=== PATIENT | female | born 1940 | race Caucasian/White ===

== ENCOUNTER 2017-01-30 14:41 | Emergency (ER) | payer OTHER ==
[~2017-01-30] VITALS: Ht 154.9 cm; Wt 59.8 kg
[~2017-01-30 14:41] MED LIST: COZA25TA PO; HYDR-3580 PO; LOVA10TA PO; ZOFR4TAB3 SL
[2017-01-30] MEDS ORDERED: SODIUM CHLOR 0.9% 1000 ML INJ 1,000 ML IV SCH (15:04)
[2017-01-30] MEDS ORDERED: ATOR40TA16 PO (15:11)
[2017-01-30] MEDS ORDERED: GABA300C5 PO (15:11)
[2017-01-30] MEDS ORDERED: LOSA50TA PO (15:11)
[2017-01-30] MEDS ORDERED: METF1000 PO (15:11)
[2017-01-30 15:12] VITALS: BP 211/98; PULSE 86; RESP 18; TEMP 97.7; O2SAT 98
--- NOTE | 2017-01-30 15:12 | PD ---
HPI Chief Complaint: GI Complaint Time Seen by Provider: 14:49 Travel History International Travel<30 days: No Contact w/Intl Traveler<30days: No Traveled to known affect area: No History of Present Illness HPI Patient is a 76-year-old female with history of hypertension, hyperlipidemia, diabetes, diverticulosis, who presents to emergency room with complaints of pain with nausea and vomiting and runny stool which has been ongoing for the past 4 days. Patient reports that for the past 4 days, she thought that she had a stomach bug. Reports that she has had increased mild to moderate discomfort to her epigastrium and upper abdomen and sometimes lower abdomen, reports increased nausea with no vomiting with her symptoms. She reports that for the past 2 days, she has had watery diarrhea about 3x in the morning. Patient did take a dose of Metamucil this morning which in attempt to thicken her stools. Patient reports no sick contacts, denies any recent travels. Patient does admit to taking antibiotics recently for urinary tract infection, she completed the antibiotics that one week ago. Patient with no chest pain or shortness of breath. Denies headache/dizzyness. Patient denies fever, reports chills. Patient has been eating and drinking plenty of fluids for hydration, reports "i just don't feel good." PFSH Past Medical History High Cholesterol: Yes Hypertension: Yes Past Surgical History Hysterectomy: Yes Social History Alcohol Use: Yes (1 OR 2 PER DAY) Tobacco Use: No Substance Use: No Allergies-Medications (Allergen,Severity, Reaction): Coded Allergies: penicillin G (Unverified Allergy, Severe, UNKNOWN, 01/30/17) Sulfa (Sulfonamide Antibiotics) (Unverified Adverse Reaction, Severe, NAUSEA, 01/30/17) Reported Meds & Prescriptions Reported Meds & Active Scripts Active Reported Gabapentin 300 Mg Cap Unknown Dose PO HS Metformin (Metformin HCl) 1,000 Mg Tab Unknown Dose PO DAILY With a meal Atorvastatin (Atorvastatin Calcium) 40 Mg Tab Unknown Dose PO HS Losartan (Losartan Potassium) 50 Mg Tab Unknown Dose PO DAILY Review of Systems General / Constitutional: Positive: Chills, No: Fever Eyes: No: Visual changes HENT: No: Headaches Cardiovascular: No: Chest Pain or Discomfort, Palpitations, Irregular Rhythm, Tachycardia Respiratory: No: Cough, Shortness of Breath Gastrointestinal: Positive: Nausea, Diarrhea, Abdominal Pain Genitourinary: No: Dysuria Musculoskeletal: No: Pain Skin: No Rash Neurologic: No: Weakness Psychiatric: No: Depression Endocrine: No: Polydipsia Hematologic/Lymphatic: No: Easy Bruising Physical Exam Narrative GENERAL: mild distress SKIN: Focused skin assessment warm/dry. HEAD: Atraumatic. Normocephalic. EYES: Pupils equal and round. No scleral icterus. No injection or drainage. ENT: No nasal bleeding or discharge. Mucous membranes pink and moist. NECK: Trachea midline. No JVD. CARDIOVASCULAR: Regular rate and rhythm. No murmur appreciated. RESPIRATORY: No accessory muscle use. Clear to auscultation. Breath sounds equal bilaterally. GASTROINTESTINAL: Abdomen soft, non-tender, nondistended. Hepatic and splenic margins not palpable. MUSCULOSKELETAL: No obvious deformities. No clubbing. No cyanosis. No edema. NEUROLOGICAL: Awake and alert. No obvious cranial nerve deficits. Motor grossly within normal limits. Normal speech. PSYCHIATRIC: Appropriate mood and affect; insight and judgment normal. Data Data Last Documented VS Vital Signs Date Time Temp Pulse Resp B/P (MAP) Pulse Ox O2 Delivery O2 Flow Rate FiO2 01/30/17 16:29 80 18 174/70 (104) 98 Room Air 01/30/17 15:12 97.7 Orders Orders Electrocardiogram (01/30/17 ) Complete Blood Count With Diff (01/30/17 15:04) Comprehensive Metabolic Panel (01/30/17 15:04) Lipase (01/30/17 15:04) Prothrombin Time / Inr (Pt) (01/30/17 15:04) Act Partial Throm Time (Ptt) (01/30/17 15:04) Urinalysis - C+S If Indicated (01/30/17 15:04) Ct Abd/Pel W Iv Contrast(Rout) (01/30/17 15:04) Iv Access Insert/Monitor (01/30/17 15:04) Ecg Monitoring (01/30/17 15:04) Oximetry (01/30/17 15:04) Ondansetron Inj (Zofran Inj) (01/30/17 15:15) Sodium Chlor 0.9% 1000 Ml Inj (Ns 1000 M (01/30/17 15:04) Sodium Chloride 0.9% Flush (Ns Flush) (01/30/17 15:15) Electrocardiogram (01/30/17 15:04) Chest, Single Ap (01/30/17 15:04) Ckmb (Isoenzyme) Profile (01/30/17 15:04) Troponin I (01/30/17 15:04) Famotidine Inj (Pepcid Inj) (01/30/17 15:15) CKMB (01/30/17 15:10) CKMB% (01/30/17 15:10) Iohexol 350 Inj (Omnipaque 350 Inj) (01/30/17 16:21) Labs Laboratory Tests Test 01/30/17 15:10 White Blood Count 6.9 TH/MM3 Red Blood Count 4.51 MIL/MM3 Hemoglobin 14.2 GM/DL Hematocrit 42.6 % Mean Corpuscular Volume 94.4 FL Mean Corpuscular Hemoglobin 31.5 PG Mean Corpuscular Hemoglobin Concent 33.3 % Red Cell Distribution Width 11.9 % Platelet Count 276 TH/MM3 Mean Platelet Volume 8.3 FL Neutrophils (%) (Auto) 61.6 % Lymphocytes (%) (Auto) 28.0 % Monocytes (%) (Auto) 7.3 % Eosinophils (%) (Auto) 2.3 % Basophils (%) (Auto) 0.8 % Neutrophils # (Auto) 4.2 TH/MM3 Lymphocytes # (Auto) 1.9 TH/MM3 Monocytes # (Auto) 0.5 TH/MM3 Eosinophils # (Auto) 0.2 TH/MM3 Basophils # (Auto) 0.1 TH/MM3 CBC Comment DIFF FINAL Differential Comment Prothrombin Time 10.8 SEC Prothromb Time International Ratio 1.0 RATIO Activated Partial Thromboplast Time 26.4 SEC Urine Color STRAW Urine Turbidity CLEAR Urine pH 7.5 Urine Specific [place] 1.006 Urine Protein NEG mg/dL Urine Glucose (UA) NEG mg/dL Urine Ketones NEG mg/dL Urine Occult Blood NEG Urine Nitrite NEG Urine Bilirubin NEG Urine Leukocyte Esterase NEG Urine WBC 0-2 /hpf Urine Squamous Epithelial Cells 0-5 /hpf Microscopic Urinalysis Comment CULT NOT INDICATED Blood Urea Nitrogen 17 MG/DL Creatinine 0.73 MG/DL Random Glucose 112 MG/DL Total Protein 7.8 GM/DL Albumin 4.5 GM/DL Calcium Level 9.0 MG/DL Alkaline Phosphatase 51 U/L Aspartate Amino Transf (AST/SGOT) 19 U/L Alanine Aminotransferase (ALT/SGPT) 28 U/L Total Bilirubin 0.7 MG/DL Sodium Level 134 MEQ/L Potassium Level 3.6 MEQ/L Chloride Level 97 MEQ/L Carbon Dioxide Level 27.1 MEQ/L Anion Gap 10 MEQ/L Estimat Glomerular Filtration Rate 77 ML/MIN Total Creatine Kinase 137 U/L Creatine Kinase MB 2.5 NG/ML Troponin I LESS THAN 0.02 NG/ML Lipase 317 U/L MDM Medical Decision Making Medical Screen Exam Complete: Yes Emergency Medical Condition: Yes Medical Record Reviewed: Yes Interpretation(s) EKG at 1510: NSR at 75bpm, qt/qtc: 429/458, lbbb Differential Diagnosis Differential includes ACS, arrhythmia, cholecystitis, gastritis, gastric ulcer, diverticulitis, electrolyte abnormality Narrative Course Patient is a 76-year-old female who presents to emergency room with complaints of abdominal pain with nausea and diarrhea for the past 4 days. Patient reports that she has been eating and drinking like her normal self, reports that she has a discomfort throughout her abdomen. On exam, patients abdomen is soft, nondistended, she has diffuse tenderness with no rebound or guarding. Patient was placed on a cardiac surgeon upon arrival to the emergency room. Lab work including x-ray of the chest ordered to rule out free air, CT abdomen and pelvis ordered to evaluate her abdominal pain. IVF as well as antiemetics and zofran ordered. Plan to monitor patient Patient's BP is elevated today - patient did take her antihypertensives this AM Vital Signs Date Time Temp Pulse Resp B/P (MAP) Pulse Ox O2 Delivery O2 Flow Rate FiO2 01/30/17 16:29 80 18 174/70 (104) 98 Room Air 01/30/17 15:37 78 18 159/84 (109) 95 Room Air 01/30/17 15:37 18 95 Room Air 01/30/17 15:12 97.7 86 18 211/98 (135) 98 CBC & BMP Diagram 01/30/17 15:10 Total Protein 7.8, Albumin 4.5, Calcium Level 9.0, Alkaline Phosphatase 51, Aspartate Amino Transf (AST/SGOT) 19, Alanine Aminotransferase (ALT/SGPT) 28, Total Bilirubin 0.7 Last Impressions Chest X-Ray 01/30/17 1504 Signed Impressions: Service Date/Time: Monday, January 30, 2017 15:10 - CONCLUSION: No acute cardiopulmonary abnormality is identified. Luís Pablo MD CT abdomen and pelvis with contrast: CONCLUSION: 1. No acute finding is identified to explain the epigastric pain. There is mildly distended fluid-filled small bowel but there are no findings to indicate bowel obstruction. 2. Nonacute findings include moderate atherosclerotic disease and sigmoid diverticulosis. Patient with no acute findings while in the ER. Patient with most likely gastroenteritis. Patient was reevaluated, patient is feeling much better at this time. Signs and symptoms of when to return to the emergency room was reviewed patient in detail. I did reviewed patients labs and studies and all findings with patient. Copies of her studies were given to her as she will need to follow up with all incidental findings. Patient will follow up with her pcp and will return to ER as needed. Diagnosis Primary Impression: Abdominal pain Qualified Codes: R10.84 - Generalized abdominal pain Additional Impression: Nausea Patient Instructions: General Instructions Additional Instructions: Please follow up with your primary care doctor Return to ER as needed or if symptoms return Please bring the copy of your radiology report to your doctor's office for follow up on all studies and findings from today Please drink plenty of fluids and eat a bland diet Med/Other Pt SpecificInfo: Prescription(s) given Scripts Ondansetron (Zofran) 4 Mg Tab 4 MG PO Q6HR Y for NAUSEA OR VOMITING, #20 TAB 0 Refills Prov: Hortencia Little DO 01/30/17 Disposition: 01 DISCHARGE HOME Condition: Stable Hortencia Little DO Jan 30, 2017 15:12
[2017-01-30] MEDS ORDERED: SODIUM CHLORIDE 0.9% FLUSH 10 ML FLUSH IV FLUSH PRN (15:15)
[2017-01-30] MEDS ORDERED: FAMOTIDINE 20 MG/2 ML VIAL IV PUSH ONE (15:15)
[2017-01-30] MEDS ORDERED: ONDANSETRON HCL 4 MG/2 ML VIAL IVP ONE (15:15)
--- NOTE | 2017-01-30 15:22 | RADRPT ---
EXAM DATE/TIME: 01/30/2017 15:10 [facility] COMPARISON: No previous studies available for comparison. INDICATIONS : Chest pain. Congestion. MEDICAL HISTORY : None. SURGICAL HISTORY : None. ENCOUNTER: Initial ACUITY: 2 days PAIN SCORE: 2/10 LOCATION: Bilateral lower chest FINDINGS: Portable AP view of the chest demonstrates a normal-sized cardiac silhouette. No effusion, consolidat ion, or pneumothorax is visualized. The bones and soft tissues demonstrate no acute abnormality. Ther e is a sclerotic focus in the left humeral head. CONCLUSION: No acute cardiopulmonary abnormality is identified. Luís Pablo MD on January 30, 2017 at 15:19 Board Certified Radiologist. This report was verified electronically.
[2017-01-30 15:33] LABS: AUTOMATED NEUTROPHIL # 4.2 TH/MM3 (1.8-7.7); BASOPHIL # 0.1 TH/MM3 (0-0.2); BASOPHIL % 0.8 % (0.0-2.0); CHLORIDE 97 MEQ/L (98-107); EOSINOPHIL # 0.2 TH/MM3 (0-0.4); EOSINOPHIL % 2.3 % (0.0-4.0); HEMATOCRIT 42.6 % (35.0-46.0); HEMO FLAGS DIFF FINAL; LYMPHOCYTE # 1.9 TH/MM3 (1.0-4.8); MEAN CELL VOLUME 94.4 FL (80.0-100.0); MEAN CORPUSCULAR HEMOGLOBIN 31.5 PG (27.0-34.0); MEAN CORPUSCULAR HGB CONC 33.3 % (32.0-36.0); MONO % 7.3 % (0.0-8.0); NEUT % 61.6 % (16.0-70.0); PLATELET COUNT 276 TH/MM3 (150-450); POTASSIUM 3.6 MEQ/L (3.5-5.1); RED BLOOD COUNT 4.51 MIL/MM3 (4.00-5.30); RED CELL DISTRIBUTION WIDTH 11.9 % (11.6-17.2); SODIUM (NA) 134 MEQ/L (136-145); WHITE BLOOD COUNT 6.9 TH/MM3 (4.0-11.0)
[2017-01-30 15:37] VITALS: BP 159/84; PULSE 78; RESP 18; O2SAT 95
[2017-01-30 15:38] LABS: ANION GAP 10 MEQ/L (5-15); BICARBONATE 27.1 MEQ/L (21.0-32.0); BLOOD UREA NITROGEN 17 MG/DL (7-18)
[2017-01-30 15:39] LABS: APTT (PATIENT) 26.4 SEC (24.3-30.1); PROTHROMBIN TIME - PATIENT 10.8 SEC (9.8-11.6)
[2017-01-30 15:41] LABS: ALT (GPT) 28 U/L (10-53); AST (GOT) 19 U/L (15-37); GLOMERULAR FILTRATION RATE 77 ML/MIN (>89)
[2017-01-30 15:42] LABS: TOTAL BILIRUBIN ADULT 0.7 MG/DL (0.2-1.0)
[2017-01-30 15:44] LABS: ALKALINE PHOSPHATASE 51 U/L (45-117); CREATINE KINASE 137 U/L (26-192)
[2017-01-30 15:45] LABS: BLOOD, URINE NEG (NEG); GLUCOSE,URINE NEG (NEG); KETONE, URINE NEG (NEG); NITRITE,URINE NEG (NEG); PH, URINE 7.5 (5.0-8.5)
[2017-01-30 15:52] LABS: COMMENT (UR) CULT NOT INDICATED; CULTURE IF INDICATED CULT NOT INDICATED; SQUAMOUS EPITHELIAL CELL URINE 0-5 /hpf (0-5); URINE COLOR STRAW (YELLW/STRAW); WBC, URINE 0-2 /hpf (0-5)
[2017-01-30 15:56] LABS: CKMB 2.5 NG/ML (0.5-3.6)
[2017-01-30] MEDS ORDERED: IOHEXOL 350 MG/ML 10 ML VIAL (for RAD DIAG) IVCONTRAST ONE (16:21)
[2017-01-30 16:29] VITALS: BP 174/70; PULSE 80; RESP 18; O2SAT 98
--- NOTE | 2017-01-30 16:42 | RADRPT ---
EXAM DATE/TIME: 01/30/2017 16:15 [facility] COMPARISON: No previous studies available for comparison. INDICATIONS : Epigastric pain. IV CONTRAST: 95 cc Omnipaque 350 (iohexol) IV ORAL CONTRAST: No oral contrast ingested. RADIATION DOSE: 7.41 CTDIvol (mGy) MEDICAL HISTORY : Hypertension. Diabetes SURGICAL HISTORY : Appendectomy. Hysterectomy. ENCOUNTER: Initial ACUITY: 4 - 6 days PAIN SCALE: 5/10 LOCATION: upper quadrant TECHNIQUE: Volumetric scanning of the abdomen and pelvis was performed. Using automated exposure control and ad justment of the mA and/or kV according to patient size, radiation dose was kept as low as reasonably achievable to obtain optimal diagnostic quality images. DICOM format image data is available electro nically for review and comparison. FINDINGS: LOWER LUNGS: The visualized lower lungs are clear. LIVER: Homogeneous density without lesion. There is no dilation of the biliary tree. No calcified [place] es. SPLEEN: Normal size without lesion. PANCREAS: Within normal limits. KIDNEYS: Normal in size and shape. There is no mass, stone or hydronephrosis. ADRENAL GLANDS: Within normal limits. VASCULAR: There is no aortic aneurysm. There is moderate atherosclerotic disease. BOWEL/MESENTERY: The stomach, small bowel, and colon demonstrate no acute abnormality. The mid to distal small bowel is mildly distended but not dilated measuring up to 2.1 cm. Most is filled with fluid. No transition point is visualized. There is sigmoid diverticulosis. There is no free intraperitoneal air or fluid. ABDOMINAL WALL: Within normal limits. RETROPERITONEUM: There is no lymphadenopathy. BLADDER: No wall thickening or mass. REPRODUCTIVE: Uterus is absent. No adnexal abnormality is visualized. INGUINAL: There is no lymphadenopathy or hernia. MUSCULOSKELETAL: There are degenerative changes of the lumbar spine. CONCLUSION: 1. No acute finding is identified to explain the epigastric pain. There is mildly distended fluid-renate led small bowel but there are no findings to indicate bowel obstruction. 2. Nonacute findings include moderate atherosclerotic disease and sigmoid diverticulosis. Luís Pablo MD on January 30, 2017 at 16:36 Board Certified Radiologist. This report was verified electronically.
[2017-01-30] MEDS ORDERED: ZOFR4TAB PO (17:09)
[2017-01-30 17:17] VITALS: BP 161/63; PULSE 78; RESP 18; O2SAT 97
--- NOTE | 2017-02-01 07:17 | EKG ---
Date Performed: 01/30/2017 Time Performed: 15:10:26 PTAGE: 76 years EKG: Sinus rhythm LEFT BUNDLE BRANCH BLOCK Compared to previous tracing no significant change ABNORMAL ECG PREVIOUS TRACING : 08/26/2012 17.57 DOCTOR: Meet Regan Interpretating Date/Time 02/01/2017 07:16:16
== END 2017-01-30 17:25 | disposition home or self-care (01) ==
LOC: PHED 14:41
DX: R10.84 Generalized abdominal pain (principal); R11.2 Nausea with vomiting, unspecified; K57.30 Diverticulosis of large intestine without perforation or abscess without bleeding; I10 Essential (primary) hypertension; E11.9 Type 2 diabetes mellitus without complications; R94.31 Abnormal electrocardiogram [ECG] [EKG]; Z79.84 Long term (current) use of oral hypoglycemic drugs
CPT/HCPCS: 71010; 74177; 80053; 81001; 82550; 82552; 83690; 84484; 85025; 85610; 85730; 93005; 96361; 96374; 96375; 99285; J2405; J7030; Q9967